=== PATIENT | female | born 1985 | race Caucasian/White ===

== ENCOUNTER 2023-02-20 18:02 | Emergency (ER) | payer SELFPAY ==
[~2023-02-20] VITALS: Ht 157.5 cm; Wt 80.7 kg
[2023-02-20 18:12] VITALS: BP 123/76; PULSE 102; RESP 20; TEMP 100; O2SAT 99
[2023-02-20] MEDS ORDERED: ALBUTEROL SULFATE/IPRATROPIU 3 ML SOL IH ONE (18:30)
[2023-02-20 18:35] VITALS: PULSE 104; RESP 18; O2SAT 95
[2023-02-20] MEDS ORDERED: NACL 0.9% 1,000 ML IV ONE (18:40)
[2023-02-20] MEDS ORDERED: methylPREDNISolone SS 125 MG/2 ML VIAL IVP ONE (18:40)
[2023-02-20] MEDS ORDERED: ONDANSETRON 4 MG/2 ML VIAL IVP ONE (18:55)
[2023-02-20 19:00] VITALS: BP 123/76; TEMP 100
[2023-02-20] MEDS ORDERED: PRON INH (20:10)
[2023-02-20] MEDS ORDERED: PRED20TA5 PO (20:10)
[2023-02-20] MEDS ORDERED: ACET-10509 PO (20:11)
--- NOTE | 2023-02-20 22:10 | NUR ---
Patient discharged with v/s stable. Written and verbal after care instructions given and explained. Patient alert, oriented and verbalized understanding of instructions. Ambulatory with steady gait. All questions addressed prior to discharge. ID band removed. Patient advised to follow up with PMD. Rx of ACETAMINOPHEN, PREDNISONE, ALBUTEROL SULFATE given. Opportunity to ask questions provided and answered.
[2023-02-20 22:16] VITALS: PULSE 95; RESP 18; O2SAT 99
== END 2023-02-20 22:10 | disposition home or self-care (01) ==
LOC: MED 18:02
DX: J45.901 Unspecified asthma with (acute) exacerbation (principal); J06.9 Acute upper respiratory infection, unspecified; Z79.899 Other long term (current) drug therapy; Z88.0 Allergy status to penicillin; Z88.6 Allergy status to analgesic agent
CPT/HCPCS: 71045; 81025; 94640; 96361; 96374; 96375; 99284; J2405; J2930; J7030